=== PATIENT | female | born 1985 | race Caucasian/White ===

== ENCOUNTER 2016-06-04 05:40 | Day surgery (SDC) | payer MEDICAID ==
[~2016-06-04] VITALS: Ht 167.6 cm; Wt 130.0 kg
--- NOTE | ~2016-06-04 | OR ---
PATIENT'S NAME: COOKIE BUSH [facility] AGE: 30 Y [address] ROOM: [address] [address] [place] [facility] [place]: 06/04/2016 OR/Procedure Report DISCHARGE DATE: FAMILY PHYSICIAN: Jacobo Farr MD ATTENDING PHYSICIAN: Kar Mcintosh SURGEON: Kar Mcintosh MD AREA SALES MANAGER: Rosa M Hernandez PA-C. DATE OF PROCEDURE: 06/04/2016 POSTOPERATIVE DIAGNOSIS: Cholelithiasis with acute cholecystitis. POSTOPERATIVE DIAGNOSIS: Cholelithiasis with acute cholecystitis. PROCEDURE PERFORMED: Laparoscopic cholecystectomy. ANESTHESIA: General endotracheal. ESTIMATED BLOOD LOSS: 150 mL. SPECIMEN: Gallbladder and stones. REASON FOR PROCEDURE: The patient is a 30-year-old female who has had constant right upper quadrant pain for the past two weeks. Her liver function tests were normal. An ultrasound showed gallbladder stones and normal sized common bile duct. Due to the patient's symptoms, we decided to proceed with cholecystectomy. FINDINGS: The patient had a hydropic severely inflamed gallbladder. The upper part of the gallbladder was partially intrahepatic and with all the chronic inflammation was a fairly difficult cholecystectomy. We did have a moderate amount of bleeding. The patient was also noted to have an incisional hernia in the lower part of her abdomen. PROCEDURE IN DETAIL: The patient was taken to the operating suite and placed in the supine position. Marcaine was infiltrated into the incision sites, a 2- cm transverse infraumbilical incision was made. The fascia was grasped and elevated and a Veress needle was used to obtain a pneumoperitoneum. An 11 mm trocar was then passed across the abdominal wall. Three 5 mm subcostal trocars were then placed under direct visualization. The gallbladder was thick walled, tensed, and markedly distended. It could not be grasped initially. We aspirated 60 mL of a fairly clear mucousy liquid from the gallbladder to decompress it somewhat. We were then able to grasp the fundus and elevate the gallbladder. A second grasper was placed on the infundibulum. This was also thick walled and difficult to grasp. There was so much wall thickening that the grasper kept wanting to slide off the gallbladder. We PATIENT'S NAME: COOKIE BUSH [facility] AGE: 30 Y [address] ROOM: [id number] [place], [place] [address] [place] [facility] [place]: 06/04/2016 OR/Procedure Report DISCHARGE DATE: FAMILY PHYSICIAN: Jacobo Farr MD ATTENDING PHYSICIAN: Kar Mcintosh began dissecting through the neck area of the gallbladder. The cystic duct was skeletonized. It was stapled proximally and distally and then divided with scissors. The cystic artery was also stapled and divided with cautery. We then began mobilizing the gallbladder free of the liver bed. Because of the cholecystitis that had been going on for the past couple of weeks, this was a fairly difficult dissection. Everything was quite adherent and we had some moderate oozing throughout this. This became more of an issue towards the fundus and became more intrahepatic. Eventually, we were able to completely free up the gallbladder. A small vessel along the side of the liver bed had some pulsatile bleeding. We were able to get a clip across this and cauterize it. The rest of it just seemed to be some slow ooze from the liver bed. We went and suctioned this out and placed Surgicel in the liver bed. We then placed the gallbladder in an endo-retrieval bag. This was brought out through the umbilicus. The gallbladder was so thick walled and inflamed that even removing it from the umbilicus was a challenge. We had to cut the fascia and extend the skin incisions to allow this to eventually be removed. We then reinspected the right upper quadrant. We spent some time, washing it out, and removing the blood clot. There was some moderate blood loss, but there really did not appear to be any significant bleeding from the liver bed. The abdomen was scanned. The patient was noted to have a moderate- sized incisional hernia in the lower abdomen. The trocars were then withdrawn. The pneumoperitoneum was evacuated. The fascia at the umbilicus was closed with a [id number] Prolene suture. The skin incisions were closed with subcuticular Monocryl. Benzoin, Steri-Strips, and gauze dressings were applied. POSTPROCEDURE PLAN: The patient will be sent to Recovery. We will plan on admitting her for overnight observation because of the blood loss that occurred. We will also keep her on some IV antibiotics. Hopefully, if blood count is stable, we can let her go in the morning. MD USMAN OSBORNE/modl /[id number] CC: Benito Childers MD d: 06/04/16 1113 t: 06/07/16 1403, OPERATIVE SUMMARY
[~2016-06-04 05:40] MED LIST: ATROVENT I0.5 MG/2.5 INH; BENICAR 20 MG20 MG PO; BUSPAR PO; BUSPIRONE HCL15 MG PO; Buspar PO; CEFTIN500 MG PO; DELTASONE10 MG PO; DELTASONE20 MG PO; DESYREL PO; DULERA 200 MCG/51 EA INH; MELATONIN3 M2 PO; MOTRIN800 MG PO; NICODERM/HABITR21 MG TRANS; PERCOCET 5-3251 EACH PO; PRENA1 CHEW TA1.4 MG PO; PRENATAL 1+1)(P1 TAB PO; PROVENTIL OR V6.7 GM; PROVENTIL OR V6.7 GM INH; PROVENTIL2.5 MG/0.5 PO; SEROQUEL XR300 MG PO; SEROQUEL300 MG PO; TRAZODONE HCL300 MG PO; TYLENOL EXTRA500 MG PO; ZITHROMAX250 MG PO
[2016-06-04] MEDS ORDERED: NORCO 5-325 TA1 EACH PO (17:50)
--- NOTE | 2016-06-04 21:45 | NUR ---
Significant Event: Pt came to floor post-op after a lap viktoria. Pt had some apnea and desaturation in PACU. She came to the floor with ETCO2 monitor. Pt was very irritable on arrival and informed staff that she wasn't staying and would go AMA if she had to. Pt was able to maintain O2 sat on room air awake and asleep. She ambulated in the klein and in the room. She did have some shoulder pain that was slightly relieved by walking and a warm blanket. Dr. Mcintosh informed that pt wanted to go home. He stated that due to blood loss she needed to stay and have labs checked in the am. Pt refused to stay stating that she needed to get home to her 7 week old baby. Pt signed AMA papers. Dismissal instructions were given and appt made for follow up. Dr. Mcintosh ok'd for pt to be sent home with her script for [place]. IV was removed and pt sent home against medical advice. Pt had 2 lap sites that had scant amt of bloody drng and 2 that were dry and intact. Pt eating and drinking well. Follow up:
== END 2016-06-04 18:00 | disposition disaster alternative care site (69) ==
LOC: GMSU 05:40 → GSDC 05:40
PROC: 0FT44ZZ Resection of Gallbladder, Percutaneous Endoscopic Approach (ICD-10-PCS; principal; 2016-06-04)
DX: K80.10 Calculus of gallbladder with chronic cholecystitis without obstruction (principal); J45.909 Unspecified asthma, uncomplicated; F41.9 Anxiety disorder, unspecified; F31.9 Bipolar disorder, unspecified; E78.5 Hyperlipidemia, unspecified; F43.10 Post-traumatic stress disorder, unspecified; F17.200 Nicotine dependence, unspecified, uncomplicated; E66.9 Obesity, unspecified; Z68.42 Body mass index [BMI] 45.0-49.9, adult; Z88.8 Allergy status to other drugs, medicaments and biological substances; Z98.890 Other specified postprocedural states
CPT/HCPCS: J0694; J1100; J2250; J2405; J3010; J7120

== ENCOUNTER 2016-10-11 20:07 | Emergency (ER) | payer MEDICAID ==
--- NOTE | ~2016-10-11 | ER ---
PATIENT'S NAME: COOKIE BUSH [facility] AGE: 31 Y [address] ROOM: [place] [id number] LOCATION: [facility] ADMIT DATE: 10/11/2016 ER/Outpatient Report DISCHARGE DATE: 10/11/2016 FAMILY PHYSICIAN: Jacobo Farr MD ATTENDING PHYSICIAN: Lauro Herrera Time of arrival: 20:18. Time of exam: 20:30. CHIEF COMPLAINT: Decreased movements. HISTORY OF PRESENT ILLNESS: The patient states she began having some generalized abdominal cramping yesterday morning. She reports that she is 19 weeks with twins, last felt them move yesterday. She states that she was busy with her six-month- old, and maybe that is why she just was not aware of it. She did try and rest, has not had any increase in sensation of movement today, and states that she is seeing Dr. Castellano in [place]. She has not contacted her primary provider. She states that she was not having any bleeding. She does feel like she has some mucousy-type discharge. Her due date is March 09, 2017. She is 4, para 2, AB1. ALLERGIES: HALDOL, NOVOCAIN, AND FLAGYL. CURRENT MEDICATIONS: On the chart and reviewed by me. PAST MEDICAL HISTORY: 1. Asthma. 2. She had an IL in 2012 and had stents x2. 3. Hernia repair. 4. PTSD. 5. Bipolar. 6. Anxiety. 7. Borderline personality. 8. She had a x2. SOCIAL HISTORY: She smokes one pack per day, and has for the last 23 years. She denies the use of alcohol or drugs. REVIEW OF SYSTEMS: PATIENT'S NAME: COOKIE BUSH [facility] AGE: 31 Y [address] ROOM: [place], [place] [address] LOCATION: [facility] ADMIT DATE: 10/11/2016 ER/Outpatient Report DISCHARGE DATE: 10/11/2016 FAMILY PHYSICIAN: Jacobo Farr MD ATTENDING PHYSICIAN: Lauro Herrera Negative other than those mentioned in the HPI. PHYSICAL EXAMINATION: VITAL SIGNS: She weighed 129.2 kg. Blood pressure is 127/73, pulse is 100, respirations are 22, temperature is 99 tympanic, and O2 saturation is 96% on room air. GENERAL: She is awake, alert, and oriented x4. SKIN: [place], warm, and dry. LUNGS: Respirations are even and nonlabored. Lung sounds are clear throughout. HEART: Regular rate and rhythm. ABDOMEN: Soft and nondistended. Bowel sounds are present. LABORATORY DATA: CBC is within normal limits. Chem Panel: Sodium is 140, potassium is 4, chloride is 110, and BUN is 5 with creatinine of 0.4. Serum hCG is 21,035. Urine, clean catch shows 25 leukocytes. Micro shows 5 to 10 white blood cells and many bacteria. DIAGNOSTIC STUDIES: Ultrasound was completed. They report that the patient does have two fetuses. The first one was on the right, presenting heart rate was 149 and presents at 20 weeks 2 days. Baby B is on the left, heart rate is 152 and is 19 weeks 6 days, 2 sacs and 2 placentas. No other abnormality is seen. The patient's blood type is A positive. She did not have any vaginal discharge while she was here. No bleeding was noted. She was comfortable lying on the cart. IMPRESSION: Urinary tract infection. PLAN: Home, rest, and fluids. Tylenol as needed for cramping. Prescription was written for Macrobid. She is to talk with Dr. Castellano tomorrow and follow up with her. She verbalized understanding. SHANTEL ESCAMILLA APRN FOR MD DANG MEZA/josie /[id number] d: 10/12/16 0603 t: 10/13/16 1500, OUTPATIENT REPORT
[~2016-10-11 20:07] MED LIST changes: +NORCO 5-325 TA1 EACH PO
[2016-10-11 20:58] LABS: BASOPHIL % 0.4 %; EOSINOPHIL # 0.1 K/uL (0.0-0.5); EOSINOPHIL % 1.1 %; IMMATURE GRANULOCYTE % 0.2 %; LYMPHOCYTE # 2.3 K/uL (0.8-4.0); LYMPHOCYTE % 25.1 %; MCH 29.3 pg (27.0-34.0); MCHC 34.3 gm/dL (32.0-36.5); MCV 85.6 fl (83.0-98.0); MONOCYTE # 0.6 K/uL (0.0-1.0); MONOCYTE % 6.3 %; MPV 10.2 fl (9.4-12.4); NEUTROPHIL # (ANC) 6.2 K/uL (1.8-7.8); NEUTROPHIL % 66.9 %; NRBC % 0 /100WBC (0-0.00); PLATELET COUNT 197 K/uL (150-450); RBC 4.09 M/uL (3.50-5.50); RDW-CV 16.8 % (11.9-14.6); WBC 9.2 K/uL (4.0-11.0)
[2016-10-11 21:19] LABS: ALBUMIN 2.6 gm/dL (3.5-5.0); ALK PHOS 64 IU/L (33-138); ALT 11 IU/L (12-78); AST 6 IU/L (10-40); BLOOD UREA NITROGEN 5 mg/dL (6-24); CALCIUM 8.3 mg/dL (8.5-10.5); CHLORIDE 110 mMol/L (96-110); CO2 24 mMol/L (22-32); CREATININE 0.4 mg/dL (0.5-1.1); SODIUM 140 mMol/L (135-145); TOTAL BILIRUBIN 0.2 mg/dL (0.0-1.5); TOTAL PROTEIN 6.5 g/dL (6.0-8.4)
[2016-10-11 21:37] LABS: BILIRUBIN URINE NEGATIVE (NEGATIVE); BLOOD URINE NEGATIVE /UL (NEGATIVE); COLOR URINE YELLOW (YELLOW); GLUCOSE URINE NEGATIVE (NEGATIVE); KETONE URINE NEGATIVE (NEGATIVE); LEUKOCYTES URINE 25 /UL (NEGATIVE); NITRITE URINE NEGATIVE (NEGATIVE); PROTEIN URINE 15 mg/dL (NEGATIVE); UROBILINOGEN URINE 1 mg/dL (NORMAL)
[2016-10-11 21:45] LABS: TURBIDITY URINE 2+ (CLEAR)
[2016-10-11 21:46] LABS: RBC URINE NEGATIVE #/HPF (NEGATIVE)
[2016-10-11 21:47] LABS: BACTERIA URINE MANY (NEGATIVE); EPITHELIAL URINE 20-50 #/HPF (NEGATIVE)
[2016-10-11 21:48] LABS: CRYSTALS URINE CALCIUM OXALATE (NEGATIVE); MUCUS URINE 1+ (NEGATIVE)
== END 2016-10-11 22:02 | disposition disaster alternative care site (69) ==
LOC: GMED 20:07
PROVIDERS: Emergency Medicine; Nurse Practitioner Family
DX: O23.42 Unspecified infection of urinary tract in pregnancy, second trimester (principal); O99.332 Smoking (tobacco) complicating pregnancy, second trimester; O99.512 Diseases of the respiratory system complicating pregnancy, second trimester; O99.342 Other mental disorders complicating pregnancy, second trimester; F41.9 Anxiety disorder, unspecified; F31.9 Bipolar disorder, unspecified; F43.10 Post-traumatic stress disorder, unspecified; F17.210 Nicotine dependence, cigarettes, uncomplicated; J45.909 Unspecified asthma, uncomplicated; Z3A.19 19 weeks gestation of pregnancy; Z88.8 Allergy status to other drugs, medicaments and biological substances; Z79.899 Other long term (current) drug therapy